=== PATIENT | male | born 1970 | race Caucasian/White ===

== ENCOUNTER → 2020-03-15 | Outpatient (CLI) | payer OTHER ==
[2020-03-15 13:05] LABS: Basophils # (A) 0.1 k/uL (0-0.2); Basophils % (A) 1 %; Eosinophils # (A) 0.1 k/uL (0-0.7); Eosinophils % (A) 2 %; HCT 44.4 % (39.0-53.0); HGB 14.7 gm/dL (13.0-17.5); Lymphocytes # (A) 1.7 k/uL (1.0-4.8); Lymphocytes % (A) 24 %; MCH 31.6 pg (25.0-35.0); MCHC 33.1 g/dL (31.0-37.0); MCV 95.5 fL (80.0-100.0); Mean Platelet Volume 7.4; Monocytes # (A) 0.5 k/uL (0-1.0); Monocytes % (A) 7 %; Neutrophils # (A) 4.6 k/uL (1.3-7.7); Neutrophils % (A) 65 %; Platelet Count 206 k/uL (150-450); RBC 4.65 m/uL (4.30-5.90); WBC 7.1 k/uL (3.8-10.6)
[2020-03-15 13:13] LABS: Appearance,Urine Clear (Clear); Bilirubin,Urine Negative (Negative); Blood,Urine Negative (Negative); Color,Urine Yellow; Glucose,Urine (UA) Negative (Negative); Ketones,Urine Negative (Negative); Leukocyte Esterase,Urine Trace (Negative); Mucus,Urine Rare /hpf; Nitrite,Urine Negative (Negative); Protein,Urine Negative (Negative); RBC,Urine <1 /hpf (0-5); Specific Gravity,Urine 1.016 (1.001-1.035); Urobilinogen,Urine <2.0 mg/dL (<2.0); WBC,Urine 3 /hpf (0-5)
[2020-03-15 13:14] LABS: Calcium 8.9 mg/dL (8.4-10.2)
== END | disposition home or self-care (01) ==
LOC: LABPAT 12:15
PROVIDERS: ATTEND Urology
DX: Z01.818 Encounter for other preprocedural examination (principal); R97.20 Elevated prostate specific antigen [PSA]; R35.0 Frequency of micturition
CPT/HCPCS: 36415; 80048; 81001; 85025; 87086

== ENCOUNTER 2020-03-21 09:34 | Day surgery (SDC) | payer OTHER ==
[2020-03-17 13:12] VITALS: BMI 23.1
[2020-03-21] MEDS ORDERED: LACTATED RINGERS 1,000 ML IV ONE ×2 (10:11→13:49)
[2020-03-21] MEDS ORDERED: ONDANSETRON 4 MG/2 ML VIAL ONE (10:14)
[2020-03-21] MEDS ORDERED: ONDANSETRON 4 MG/2 ML VIAL IVP ONE (10:17)
[2020-03-21] MEDS ORDERED: DEXAMETHASONE SOD PHOSPHATE 4 MG/ML 1 ML VIAL IVP ONE (10:18)
[2020-03-21] MEDS ORDERED: LIDOCAINE 1% (10MG/ML) FOR IV START INTRADERMA ONE (10:19)
--- NOTE | 2020-03-21 10:29 | P.HPIHPCON ---
History of Present Illness H&P Date: 03/21/20 This is a 49-year-old male with history of elevated PSA at 4.4 . Discussed with him given his PSA elevation I recommend we proceed with a prostate biopsy. He has poor tolerance of bedside procedure, Thus he elected to go to the OR for a biopsy. Discussed with him the risk which includes but not limited to bleeding, infection, sepsis. He understood all the risk and agreed to proceed with a transperineal prostate biopsy Consent for Procedure: I have explained the operation/procedure to the patient, including the risks, benefits, side effects, alternative therapies (including not receiving the proposed treatment or service), the likelihood of the patient achieving his/her goals, and potential recuperation problems for the procedure/sedation/analgesia, as well as any blood products, if indicated. I also explained to the patient the risks, benefits and side effects of the alternatives, as well as the risks related to not receiving the proposed procedure, care, treatment, or services. Past Medical History Past Medical History: Asthma, Prostate Disorder, Seizure Disorder Additional Past Medical History / Comment(s): LAST SEIZURE >1 YR. ENLARGED PROSTATE History of Any Multi-Drug Resistant Organisms: None Reported Past Surgical History: Tonsillectomy Additional Past Surgical History / Comment(s): RFA TO BACK Past Anesthesia/Blood Transfusion Reactions: No Reported Reaction Smoking Status: Never smoker - Past Family History Mother Family Medical History: Cancer Medications and Allergies Home Medications Medication Instructions Recorded Confirmed Type Desvenlafaxine Succinate [Pristiq] 100 mg PO DAILY 03/17/20 03/17/20 History Topiramate [Topamax] 100 mg PO BID 03/17/20 03/17/20 History Allergies Allergy/AdvReac Type Severity Reaction Status Date / Time No Known Allergies Allergy Verified 03/17/20 13:05 Surgical - Exam Vital Signs Temp Pulse Resp BP Pulse Ox 97.0 F L 75 16 124/78 98 03/21/20 10:22 03/21/20 10:22 03/21/20 10:22 03/21/20 10:22 03/21/20 10:22 - General well developed, well nourished, no distress, no pain - Eyes PERRL - ENT normal nares, normal mucosa - Respiratory normal expansion, normal respiratory effort - Abdomen Abdomen: soft, non tender - Psychiatric oriented to time, oriented to person, oriented to place Assessment and Plan Assessment: OR for transperineal biopsy
[2020-03-21] MEDS ORDERED: SUCCINYLCHOLINE CHLORIDE 100 MG/5 ML SYR IV ONE (13:05)
[2020-03-21] MEDS ORDERED: fentaNYL (PF) 50 MCG/ML 2 ML AMP ONE (13:05)
[2020-03-21] MEDS ORDERED: PROPOFOL 10 MG/ML 20 ML VIAL IV ONE (13:05)
[2020-03-21] MEDS ORDERED: LIDOCAINE 1% INJ 10MG/ML (20 ML MDV) ONE (13:05)
[2020-03-21] MEDS ORDERED: MIDAZOLAM 2 MG/2 ML VIAL ONE (13:05)
[2020-03-21] MEDS ORDERED: LIDOCAINE 2% INJ 20 MG/ML SQ ONE (13:31)
[2020-03-21 15:33] VITALS: TEMP 97.1
[2020-03-21 15:54] VITALS: RESP 18
[2020-03-21 16:30] VITALS: BP 130/89; PULSE 60
--- NOTE | 2020-03-21 19:01 | P.OP ---
Date of Procedure: 03/21/20 Preoperative Diagnosis: elevated PSA Postoperative Diagnosis: same Procedure(s) Performed: Transperineal prostate Biopsy Implants: none Anesthesia: BENNETT Surgeon: Lc Mcdonnell Estimated Blood Loss (ml): 5 Pathology: other (14 prostate biopsies) Condition: stable Disposition: PACU Indications for Procedure: This is a 49-year-old male with history of elevated PSA at 4.4 . Discussed with him given his PSA elevation I recommend we proceed with a prostate biopsy. He has poor tolerance of bedside procedure, Thus he elected to go to the OR for a biopsy. Discussed with him the risk which includes but not limited to bleeding, infection, sepsis. He understood all the risk and agreed to proceed with a transperineal prostate biopsy Description of Procedure: Patient was brought to the operating room, general anesthesia was induced. He was prepped and drapped in sterile fashion and placed in dorsal lithotimy position., Transrectal ultrasound of the prostate was performed,. Ultrasound showed no hypoechoic lesion. Using the template grid, a total of 14 biopsies were performed through the perineum , Patient tolerated the procedure well and taken to recovery in stable condition.
== END 2020-03-21 17:10 | disposition home or self-care (01) ==
LOC: OR 09:34
PROVIDERS: ATTEND Urology
DX: N41.0 Acute prostatitis (principal); J45.909 Unspecified asthma, uncomplicated; G40.909 Epilepsy, unspecified, not intractable, without status epilepticus; Z80.9 Family history of malignant neoplasm, unspecified; Z79.899 Other long term (current) drug therapy; F32.9 Major depressive disorder, single episode, unspecified
CPT/HCPCS: 88305; 55706; J2250; J1100; J0690; J2405; J2001; J3010; J0330; J2704